=== PATIENT | male | born 1950 | race Caucasian/White ===

== ENCOUNTER 2017-12-01 02:42 | Day surgery (SDC) | payer OTHER ==
[2017-11-30 08:19] LABS: BASOPHILS ABSOLUTE AUTO 0.07 K/mm3 (0.00-0.23); BASOPHILS PERCENT AUTO 1 % (0-2); EOSINOPHILS ABSOLUTE AUTO 0.61 K/mm3 (0.00-0.68); EOSINOPHILS PERCENT AUTO 6 % (0-6); Hematocrit 45.4 % (37.0-53.0); Hemoglobin 15.2 g/dL (13.5-17.5); IMMATURE GRAN ABSOLUTE AUTO 0.02 K/mm3 (0.00-0.10); IMMATURE GRAN PERCENT AUTO 0 % (0-1); LYMPHOCYTES ABSOLUTE AUTO 1.94 K/mm3 (0.84-5.20); LYMPHOCYTES PERCENT AUTO 19 % (21-46); MONOCYTES PERCENT AUTO 8 % (4-13); Mean Corpuscular HGB 30.8 pg (26.0-34.0); Mean Corpuscular HGB Conc 33.5 g/dL (31.5-36.5); Mean Corpuscular Volume 92 fL (80-100); Mean Platelet Volume 10.9 fL (9.1-12.4); NEUTROPHILS ABSOLUTE AUTO 6.69 K/mm3 (1.96-9.15); NEUTROPHILS PERCENT AUTO 66 % (41-73); Platelet Count 173 K/mm3 (150-400); RDW Coefficient Variation 13.3 % (11.7-14.2); RDW Standard Deviation 45.1 fL (35.1-46.3); Red Blood Cell Count 4.94 M/mm3 (4.30-5.90); White Blood Cell Count 10.13 K/mm3 (4.00-11.30)
[2017-11-30 08:42] LABS: Anion Gap 5 mmol/L (6-16); Blood Urea Nitrogen 14 mg/dL (8-24); Bun/Creatinine Ratio 21.2 (12.0-20.0); CO2, Blood 32 mmol/L (21-32); Calcium, Blood 8.9 mg/dL (8.5-10.1); Chloride, Blood 103 mmol/L (98-108); Creatinine, Blood 0.66 mg/dL (0.60-1.20); Glomerular Filtration Rate >60 (60-); Glucose, Blood 140 mg/dL (70-99); Potassium, Blood 3.8 mmol/L (3.5-5.5); Sodium, Blood 140 mmol/L (136-145)
[2017-11-30 08:44] LABS: International Normalized Ratio 0.98; Prothrombin Time Results 10.2 Sec (9.7-11.5)
[~2017-12-01] VITALS: Ht 180.3 cm; Wt 129.5 kg
[~2017-12-01 02:42] MED LIST: ASPI81CH PO; ATEN25 PO; ATOR40TA PO; CHLO25B PO; Colace250 MG PO; DOCU100 PO; FLUO10 PO; GABA400 PO; MEDICAL MARIJUANA INH; MORP15ER PO; Mobic15 MG PO; NAPR250 PO; ROSUVASTATIN CALCIUM PO; TRAM50 PO
== END 2017-12-01 11:45 | disposition home or self-care (01) ==
LOC: MHTC 02:42
PROVIDERS: Internal Medicine Interventional Cardiology
DX: R94.39 Abnormal result of other cardiovascular function study (principal); Z01.810 Encounter for preprocedural cardiovascular examination; I25.10 Atherosclerotic heart disease of native coronary artery without angina pectoris
CPT/HCPCS: 36415; 80048; 85025; 85610; 93455; 99152; 99153; C1760; C1769; J1644; J2250; J3010; J7030; Q9967

== ENCOUNTER 2020-10-18 08:48 | Inpatient (IN) | payer OTHER, MEDICARE ==
[~2020-10-18] VITALS: Ht 180.3 cm; Wt 128.0 kg
[~2020-10-18 08:48] MED LIST changes: -ASPI81CH PO; +Aspirin EC81 MG PO
[2020-10-18 09:49] LABS: BASOPHILS ABSOLUTE AUTO 0.07 K/mm3 (0.00-0.23); BASOPHILS PERCENT AUTO 1 % (0-2); EOSINOPHILS ABSOLUTE AUTO 0.65 K/mm3 (0.00-0.68); EOSINOPHILS PERCENT AUTO 7 % (0-6); Hematocrit 45.3 % (37.0-53.0); Hemoglobin 15.3 g/dL (13.5-17.5); IMMATURE GRAN ABSOLUTE AUTO 0.02 K/mm3 (0.00-0.10); IMMATURE GRAN PERCENT AUTO 0 % (0-1); LYMPHOCYTES ABSOLUTE AUTO 2.67 K/mm3 (0.84-5.20); LYMPHOCYTES PERCENT AUTO 29 % (21-46); MONOCYTES ABSOLUTE AUTO 0.74 K/mm3 (0.16-1.47); MONOCYTES PERCENT AUTO 8 % (4-13); Mean Corpuscular HGB 30.4 pg (26.0-34.0); Mean Corpuscular HGB Conc 33.8 g/dL (31.5-36.5); Mean Corpuscular Volume 90 fL (80-100); Mean Platelet Volume 11.3 fL (9.1-12.4); NEUTROPHILS ABSOLUTE AUTO 5.01 K/mm3 (1.96-9.15); NEUTROPHILS PERCENT AUTO 55 % (41-73); Platelet Count 172 K/mm3 (150-400); RDW Coefficient Variation 13.5 % (11.7-14.2); RDW Standard Deviation 44.6 fL (35.1-46.3); Red Blood Cell Count 5.04 M/mm3 (4.30-5.90); White Blood Cell Count 9.16 K/mm3 (4.00-11.30)
[2020-10-18 10:05] LABS: International Normalized Ratio 0.98; Prothrombin Time Results 10.5 Sec (9.7-11.5)
[2020-10-18 10:11] LABS: Alanine Aminotransfer (ALT/SGP 59 U/L (12-78); Albumin, Blood 3.5 g/dL (3.4-5.0); Albumin/Globulin Ratio 0.9 (0.8-1.8); Alk Phos 101 U/L (50-136); Anion Gap 1 mmol/L (6-16); Aspartate Aminotrans (AST/SGOT 39 U/L (12-37); Bilirubin, Total 0.7 mg/dL (0.1-1.0); Blood Urea Nitrogen 20 mg/dL (8-24); Bun/Creatinine Ratio 29.5 (12.0-20.0); CO2, Blood 33 mmol/L (21-32); Calcium, Blood 9.1 mg/dL (8.5-10.1); Chloride, Blood 103 mmol/L (98-108); Creatinine, Blood 0.68 mg/dL (0.60-1.20); Globulin, Blood 3.8 g/dL (2.2-4.0); Glomerular Filtration Rate >60 (60-); Glucose, Blood 172 mg/dL (70-99); Potassium, Blood 3.8 mmol/L (3.5-5.5); Sodium, Blood 137 mmol/L (136-145); Total Protein, Blood 7.3 g/dL (6.4-8.2); Troponin I <0.015 ng/mL (0.000-0.040)
--- NOTE | 2020-10-18 12:48 | NUR ---
ECHOCARDIOGRAM COMPLETED
[2020-10-18] MEDS ORDERED: DIURETIC (13:52)
--- NOTE | 2020-10-18 14:20 | NUR ---
Pt sitting on side of bed, going through medical history with me, and denied pain. However, about 10 minutes after eating half a sandwich, he suddenly grabbed his left chest , winced, and said that he was having a sharp pain right over the left side. It lasted about 1-2 minutes, and then he said it was getting better. Nitro paste applied. Pt states he doesn't want the morphine right now, he is feeling better. blood pressure 114/63, heart rate 57 bpm, sinus bradycardia.
--- NOTE | 2020-10-18 15:48 | NUR ---
Report received from REY Cheng in ICU. Pt arrived in wheelchair to PCU 7; court monitor attached and pt assisted after vital signs checked to the recliner chair. Call light in use by pt. she has no c/o pain or discomfort at this time.
--- NOTE | 2020-10-19 04:36 | NUR ---
IMPROVEMENT COORDINATOR SUMMARY THE PT HAS STATED THAT HE HAS HAD ON AND OFF AGAIN CHEST PAIN BUT SAID IT IS RELIEVED WHEN HE LIES FLAT AND NOT ON HIS LEFT SIDE. TELE HAS SHOWED NSR W A BBB IN THE 70'S. BP HAS BEEN SOFT W A SBP IN THE 90'S. NITRO PASTE APPLIED PER EMAR BUT NO MORPHINE GIVEN THIS SHIFT. HEPARIN RUNNING PER ORDER AND O2 SATS >92% ON 2L VIA NC. PT HAS SLEPT COMFORTABLY FOR MAJORITY OF THE SHIFT. WCTM.
[2020-10-19 10:24] LABS: Influenza A, PCR NEGATIVE (NEGATIVE); Influenza B, PCR NEGATIVE (NEGATIVE); Resp Syncytial Virus, PCR NEGATIVE (NEGATIVE); SARS-Cov-2 (COVID-19) PCR, MMC NEGATIVE (NEGATIVE)
--- NOTE | 2020-10-19 19:41 | NUR ---
SUMMARY PT TO THE EDUCATION INSTRUCTOR TODAY, STENT PLACED BY , CHG DRSG TO RIGHT GROIN SITE C/D/I, NO S/S HEMATOMA NOTED, CIRC WNL, PEDAL PULSE INTACT. PT DENIES PAIN, NO CP/PRESSURE REPORTED SINCE PROCEDURE, VSS, ON RA. PT IS TOLERATING PO INTAKE, VOIDING WNL, BM X1. NS INFUSING PER EMAR @ 100 ML/HR. REPORT GIVEN TO LUANNE RN, GROIN SITE CHECKED AT BEDSIDE, CALL LIGHT IN REACH.
--- NOTE | 2020-10-20 03:42 | NUR ---
E COMMERCE DEVELOPER SUMMARY PT HAS DENIED ANY CP OR PRESSURE THIS SHIFT. O2 SATS >92% ON RM AIR. PT HAS TOLERATED AMBULATING TO THE BATHROOM WITHOUT BECOMING SOB OR HAVING ANY PAIN. GROIN SITE HAS NO S/S OF HEMATOMA AND IS C/D/I. PT HAS HAD VERY GOOD URINE OUTPUT AND HAS SLEPT FOR MAJORITY OF THE SHIFT. VSS, WCTM.
[2020-10-20] MEDS ORDERED: BRILINTA90 M1 PO (09:24)
[2020-10-20] MEDS ORDERED: LISI5 PO (09:24)
== END 2020-10-20 10:20 | disposition home or self-care (01) | DRG 247 ==
LOC: ER 08:48 → ICUW 08:49 → PCU 13:36
PROVIDERS: Emergency Medicine; Internal Medicine Cardiovascular Disease; ADMIT Internal Medicine
PROC: 027034Z Dilation of Coronary Artery, One Artery with Drug-eluting Intraluminal Device, Percutaneous Approach (ICD-10-PCS; principal; 2020-10-19)
PROC: B2111ZZ Fluoroscopy of Multiple Coronary Arteries using Low Osmolar Contrast (ICD-10-PCS; 2020-10-19)
PROC: 4A023N7 Measurement of Cardiac Sampling and Pressure, Left Heart, Percutaneous Approach (ICD-10-PCS; 2020-10-19)
PROC: B2181ZZ Fluoroscopy of Left Internal Mammary Bypass Graft using Low Osmolar Contrast (ICD-10-PCS; 2020-10-19)
PROC: B2131ZZ Fluoroscopy of Multiple Coronary Artery Bypass Grafts using Low Osmolar Contrast (ICD-10-PCS; 2020-10-19)
DX: I25.110 Atherosclerotic heart disease of native coronary artery with unstable angina pectoris (principal); E11.9 Type 2 diabetes mellitus without complications; Z20.822 Contact with and (suspected) exposure to COVID-19; I10 Essential (primary) hypertension; M16.0 Bilateral primary osteoarthritis of hip; Z95.1 Presence of aortocoronary bypass graft; Z87.891 Personal history of nicotine dependence; Z79.82 Long term (current) use of aspirin; Z79.899 Other long term (current) drug therapy; Z98.890 Other specified postprocedural states
CPT/HCPCS: 0241U; 36415; 71045; 76937; 80053; 83690; 84484; 85025; 85347; 85610; 85730; 93005; 93010; 93306; 93459; 93571; 93572; 96376; 99152; 99153; 99285-25; A9270; C1725; C1760; C1769; C1874; C1887; C1894; C9600; G0378; J0461; J1644; J2250; J2270; J3010; J7030; J7040; J7050; Q9967

== ENCOUNTER 2023-08-09 10:51 | Day surgery (SDC) | payer OTHER ==
[~2023-08-09] VITALS: Ht 180.3 cm; Wt 109.9 kg
[~2023-08-09 10:51] MED LIST changes: +ASPI81CH PO; -Aspirin EC81 MG PO; +BRILINTA90 M1 PO; +CYMBALTA60 M1 PO; +DIURETIC; +FURO20 PO; +LISI5 PO; +MOBIC15 MG PO
--- NOTE | 2023-08-09 11:33 | NUR ---
08/09/23 1133 Rossana Love IN AT 1113 LORE IN AT 1115 CALL LIGHT AT BEDSIDE
[2023-08-09 12:39] VITALS: BP 124/83
== END 2023-08-09 13:00 | disposition home or self-care (01) ==
LOC: ORSCSDS 10:51
PROVIDERS: Student in an Organized Health Care Education/Training Program
PROC: 08RJ3JZ Replacement of Right Lens with Synthetic Substitute, Percutaneous Approach (ICD-10-PCS; principal; 2023-08-09 12:30)
DX: E11.36 Type 2 diabetes mellitus with diabetic cataract (principal); H25.11 Age-related nuclear cataract, right eye; H52.201 Unspecified astigmatism, right eye; H21.81 Floppy iris syndrome; I25.10 Atherosclerotic heart disease of native coronary artery without angina pectoris; F32.A Depression, unspecified; E78.5 Hyperlipidemia, unspecified; F43.10 Post-traumatic stress disorder, unspecified; G47.33 Obstructive sleep apnea (adult) (pediatric); Z79.82 Long term (current) use of aspirin; Z79.899 Other long term (current) drug therapy; Z87.891 Personal history of nicotine dependence
CPT/HCPCS: 82947; J2250; J3010; J7040; V2632

== ENCOUNTER 2023-08-16 09:17 | Day surgery (SDC) | payer OTHER ==
[~2023-08-16] VITALS: Ht 180.3 cm; Wt 110.8 kg
[2023-08-16] MEDS ORDERED: CHLO25B PO (09:34)
--- NOTE | 2023-08-16 09:36 | NUR ---
08/16/23 0936 Macy Longoria AT 0924 PLEET 0900
[2023-08-16 11:04] VITALS: BP 127/72
== END 2023-08-16 11:18 | disposition home or self-care (01) ==
LOC: ORSCSDS 09:17
PROVIDERS: Student in an Organized Health Care Education/Training Program
PROC: 08RK3JZ Replacement of Left Lens with Synthetic Substitute, Percutaneous Approach (ICD-10-PCS; principal; 2023-08-16 10:30)
DX: H25.12 Age-related nuclear cataract, left eye (principal); Z96.1 Presence of intraocular lens; H52.202 Unspecified astigmatism, left eye; E66.9 Obesity, unspecified; Z68.34 Body mass index [BMI] 34.0-34.9, adult; I10 Essential (primary) hypertension; I25.10 Atherosclerotic heart disease of native coronary artery without angina pectoris; M19.90 Unspecified osteoarthritis, unspecified site; E78.5 Hyperlipidemia, unspecified; G47.33 Obstructive sleep apnea (adult) (pediatric); Z79.82 Long term (current) use of aspirin; Z79.899 Other long term (current) drug therapy
CPT/HCPCS: J2250; J3010; J7040; V2632

== ENCOUNTER 2024-11-03 08:45 | Emergency (ER) | payer SELFPAY ==
[~2024-11-03] VITALS: Ht 182.9 cm; Wt 108.9 kg
[2024-11-03 08:51] VITALS: BP 139/80
[2024-11-03] MEDS ORDERED: HYDROcodone 10-APAP 325 TAB PO ONE (09:30)
== END 2024-11-03 10:10 | disposition home or self-care (01) ==
LOC: ER 08:45
DX: S09.90XA Unspecified injury of head, initial encounter (principal); S40.012A Contusion of left shoulder, initial encounter; S70.02XA Contusion of left hip, initial encounter; E11.9 Type 2 diabetes mellitus without complications; Z91.048 Other nonmedicinal substance allergy status; Z79.899 Other long term (current) drug therapy; Z87.891 Personal history of nicotine dependence; V86.55XA Driver of 3- or 4- wheeled all-terrain vehicle (ATV) injured in nontraffic accident, initial encounter
CPT/HCPCS: 70450; 72125; 73030; 73502; 99284-25; A9270